=== PATIENT | female | born 1950 | race Caucasian/White ===

== ENCOUNTER 2016-05-02 14:47 | Outpatient (CLI) | payer OTHER | END 2016-05-02 14:48 | disposition home or self-care (01) | DX: Z12.31 Encounter for screening mammogram for malignant neoplasm of breast (principal) ==

== ENCOUNTER 2016-06-17 07:15 | Outpatient (CLI) | payer OTHER | END 2016-06-17 07:16 | disposition critical access hospital (66) | DX: M79.605 Pain in left leg (principal); W01.0XXA Fall on same level from slipping, tripping and stumbling without subsequent striking against object, initial encounter; Y93.G1 Activity, food preparation and clean up; Y92.000 Kitchen of unspecified non-institutional (private) residence as the place of occurrence of the external cause | CPT/HCPCS: A0425; A0427 ==

== ENCOUNTER 2016-06-17 07:55 | Inpatient (IN) | payer OTHER, MEDICARE ==
[2016-06-17] MEDS ORDERED: HYDROmorphone 1 MG/ML SYRINGE IVP STA ×2 (08:02→09:38)
[2016-06-17] MEDS ORDERED: ONDANSETRON 4 MG/2 ML VIAL IVP STA ×2 (08:02→10:13)
[2016-06-17] MEDS ORDERED: HYDROmorphone 1 MG/ML SYRINGE ONE ×2 (08:17→09:40)
[2016-06-17] MEDS ORDERED: ONDANSETRON 4 MG/2 ML VIAL ONE ×2 (08:18→10:14)
[2016-06-17] MEDS ORDERED: diazePAM INJ 5 MG/ML SYRINGE IVP STA (09:38)
[2016-06-17] MEDS ORDERED: diazePAM INJ 5 MG/ML SYRINGE ONE (09:40)
[2016-06-17] MEDS ORDERED: SODIUM CHLORIDE FLUSH 0.9% 10 ML SYRINGE IVP PRN (09:58)
[2016-06-17] MEDS ORDERED: SODIUM CHLORIDE 0.9% 1,000 ML IV SCH (10:00)
[2016-06-17] MEDS ORDERED: SODIUM CHLORIDE 0.9% 1,000 ML IV ONE (10:13)
[2016-06-17] MEDS: HYDROcod/ACETAM 5/325 MG TABLET PO PRN ×3 (12:42→23:51)
[2016-06-17] MEDS: HYDROmorphone 1 MG/ML SYRINGE IVP PRN (13:35)
[2016-06-17] MEDS: FAMOTIDINE 20 MG/50 ML 50 ML IV SCH (13:35)
[2016-06-17] MEDS: SODIUM CHLORIDE FLUSH 0.9% 10 ML SYRINGE IVP SCH (14:02)
[2016-06-17] MEDS: ATENOLOL 25 MG TABLET PO SCH (15:04)
[2016-06-17] MEDS: LISINOPRIL 20 MG TABLET PO SCH (15:04)
[2016-06-17] MEDS: hydroCHLOROthiazide 12.5 MG CAPSULE PO SCH (15:04)
[2016-06-17] MEDS: ACETAMINOPHEN 325 MG TABLET PO PRN (15:54)
[2016-06-17] MEDS: ONDANSETRON 4 MG/2 ML VIAL IVP PRN (15:54)
[2016-06-17] MEDS: SODIUM CHLORIDE 0.9% 1,000 ML IV SCH (17:22)
[2016-06-18] MEDS: SODIUM CHLORIDE FLUSH 0.9% 10 ML SYRINGE IVP SCH ×4 (00:06→19:24)
[2016-06-18] MEDS: SODIUM CHLORIDE 0.9% 1,000 ML IV SCH ×4 (00:07→21:13)
[2016-06-18] MEDS: ACETAMINOPHEN 325 MG TABLET PO PRN (04:26)
[2016-06-18] MEDS: HYDROmorphone 1 MG/ML SYRINGE IVP PRN (05:38)
[2016-06-18] MEDS: ONDANSETRON 4 MG/2 ML VIAL IVP PRN (05:48)
[2016-06-18] MEDS: FAMOTIDINE 20 MG/50 ML 50 ML IV SCH (09:18)
[2016-06-18] MEDS: ATENOLOL 25 MG TABLET PO SCH (09:19)
[2016-06-18] MEDS: hydroCHLOROthiazide 12.5 MG CAPSULE PO SCH (09:19)
[2016-06-18] MEDS: LISINOPRIL 20 MG TABLET PO SCH (09:19)
[2016-06-18] MEDS: POLYETHYLENE GLYCOL 3350 17 GM PACKET PO SCH (09:19)
[2016-06-18] MEDS: HYDROcod/ACETAM 5/325 MG TABLET PO PRN ×4 (09:34→22:47)
[2016-06-18] MEDS: fentaNYL 100 MCG/2 ML VIAL IVP PRN ×3 (12:35→20:28)
[2016-06-19] MEDS: SODIUM CHLORIDE 0.9% 1,000 ML IV SCH ×4 (03:36→20:41)
[2016-06-19] MEDS: HYDROcod/ACETAM 5/325 MG TABLET PO PRN ×2 (03:47→09:10)
[2016-06-19] MEDS: SODIUM CHLORIDE FLUSH 0.9% 10 ML SYRINGE IVP SCH ×3 (07:06→23:25)
[2016-06-19] MEDS: fentaNYL 100 MCG/2 ML VIAL IVP PRN ×2 (07:23→09:10)
[2016-06-19] MEDS: FAMOTIDINE 20 MG/50 ML 50 ML IV SCH (09:11)
[2016-06-19] MEDS: POLYETHYLENE GLYCOL 3350 17 GM PACKET PO SCH (09:14)
[2016-06-19] MEDS: LISINOPRIL 20 MG TABLET PO SCH (09:15)
[2016-06-19] MEDS: hydroCHLOROthiazide 12.5 MG CAPSULE PO SCH (09:15)
[2016-06-19] MEDS: ATENOLOL 25 MG TABLET PO SCH (09:16)
[2016-06-19] MEDS ORDERED: BUPIVACAINE 0.25%-EPI 1:200000 PF 30 ML VIAL SUBQ ONE (13:42)
[2016-06-19] MEDS ORDERED: LACTATED RINGERS 1,000 ML IV ONE ×3 (13:43)
[2016-06-19] MEDS ORDERED: TRANEXAMIC ACID 1,000 MG/10 ML VIAL IV ONE (13:45)
[2016-06-19] MEDS ORDERED: ONDANSETRON 4 MG/2 ML VIAL IVP ONE (13:45)
[2016-06-19] MEDS ORDERED: SODIUM CHLORIDE 0.9% 10 ML VIAL IV ONE (13:45)
[2016-06-19] MEDS ORDERED: ROCURONIUM 50 MG/5 ML VIAL IVP ONE (13:45)
[2016-06-19] MEDS ORDERED: ACETAMINOPHEN 1,000 MG/100 ML VIAL IV ONE (13:45)
[2016-06-19] MEDS ORDERED: LIDOCAINE-MPF 2% 5 ML VIAL IM ONE (13:45)
[2016-06-19] MEDS ORDERED: ROPIVACAINE 0.5% PF 20 ML AMPULE EP ONE (13:45)
[2016-06-19] MEDS ORDERED: PROPOFOL 200 MG/20 ML VIAL IVP ONE (13:45)
[2016-06-19] MEDS ORDERED: MIDAZOLAM 2 MG/2 ML VIAL IVP ONE (13:45)
[2016-06-19] MEDS ORDERED: ePHEDrine 50 MG/ML AMP IVP ONE (13:45)
[2016-06-19] MEDS ORDERED: ceFAZolin 1 GM VIAL IV ONE (13:45)
[2016-06-19] MEDS ORDERED: KETOROLAC 30 MG/ML VIAL IVP ONE (13:45)
[2016-06-19] MEDS ORDERED: fentaNYL 250 MCG/5 ML VIAL IVP ONE (13:45)
[2016-06-19] MEDS ORDERED: DEXAMETHASONE 4 MG/ML VIAL IVP ONE (13:45)
[2016-06-19] MEDS ORDERED: SUCCINYLCHOLINE 200 MG/10 ML VIAL IVP ONE (13:45)
[2016-06-19] MEDS ORDERED: ACETAMINOPHEN 1,000 MG/100 ML 100 ML IV PRN (16:40)
[2016-06-19] MEDS ORDERED: ACETAMINOPHEN 325 MG TABLET PO PRN (16:40)
[2016-06-19] MEDS ORDERED: BISACODYL 5 MG TABLET PO PRN (16:40)
[2016-06-19] MEDS ORDERED: ONDANSETRON 4 MG/2 ML VIAL IVP PRN (16:40)
[2016-06-19] MEDS ORDERED: BISACODYL 10 MG SUPP PR PRN (16:40)
[2016-06-19] MEDS ORDERED: PROCHLORPERAZINE 10 MG/2 ML VIAL IVP PRN (16:40)
[2016-06-19] MEDS ORDERED: HYDROmorphone 1 MG/ML SYRINGE IVP PRN (16:40)
[2016-06-19] MEDS ORDERED: SODIUM CHLORIDE FLUSH 0.9% 10 ML SYRINGE IVP PRN (16:40)
[2016-06-19] MEDS ORDERED: DOCUSATE SODIUM 100 MG CAPSULE PO PRN (16:40)
[2016-06-19] MEDS ORDERED: oxyCOD/ACETAMIN 5 MG/325 MG TABLET PO PRN (16:40)
[2016-06-19] MEDS ORDERED: LACTATED RINGERS 1,000 ML IV SCH (17:00)
[2016-06-19] MEDS: MIDAZOLAM 2 MG/2 ML VIAL ONE ×2 (17:06→17:22)
[2016-06-19] MEDS: ACETAMINOPHEN 1,000 MG/100 ML 100 ML IV SCH ×2 (17:45→22:12)
[2016-06-19] MEDS ORDERED: MIDAZOLAM 2 MG/2 ML VIAL ONE (17:49)
[2016-06-19] MEDS ORDERED: VANCOMYCIN INJ 2 GM in SODIUM CHLORIDE 0.9% 500 ML IV ONE ×4 (19:00)
[2016-06-19] MEDS ORDERED: VANCOMYCIN PER PHARMACY 1 GM in SODIUM CHLORIDE 0.9% 250 ML IV SCH (19:00)
[2016-06-19] MEDS ORDERED: IOPAMIDOL-300 100 ML VIAL IVP ONE (20:17)
[2016-06-19] MEDS: METOPROLOL 5 MG/5 ML VIAL IVP SCH (20:43)
[2016-06-19] MEDS ORDERED: CEFEPIME 2 GM in SODIUM CHLORIDE 0.9% MINIBAG 100 ML IV SCH (21:00)
[2016-06-19] MEDS ORDERED: HEPARIN 5,000 UNIT/ML VIAL IVP SCH (22:05)
[2016-06-19] MEDS: ceFAZolin 2 GM/50 ML 50 ML IV SCH (22:43)
[2016-06-19] MEDS ORDERED: HEPARIN 25,000 UNITS/500 ML 500 ML IV SCH (23:00)
[2016-06-20] MEDS: METOPROLOL 5 MG/5 ML VIAL IVP SCH ×2 (00:08→06:18)
[2016-06-20] MEDS ORDERED: VANCOMYCIN INJ 1 GM in SODIUM CHLORIDE 0.9% 250 ML IV SCH (03:00)
[2016-06-20] MEDS: ACETAMINOPHEN 1,000 MG/100 ML 100 ML IV SCH ×4 (04:00→21:02)
[2016-06-20] MEDS: ceFAZolin 2 GM/50 ML 50 ML IV SCH ×2 (04:00→10:04)
[2016-06-20] MEDS: SODIUM CHLORIDE FLUSH 0.9% 10 ML SYRINGE IVP SCH ×3 (06:29→21:02)
[2016-06-20] MEDS: SODIUM CHLORIDE 0.9% 1,000 ML IV SCH ×3 (06:58→22:58)
[2016-06-20] MEDS: fentaNYL 100 MCG/2 ML VIAL IVP PRN ×2 (08:41→21:03)
[2016-06-20] MEDS: POLYETHYLENE GLYCOL 3350 17 GM PACKET PO SCH (08:59)
[2016-06-20] MEDS: FAMOTIDINE 20 MG/50 ML 50 ML IV SCH (08:59)
[2016-06-20] MEDS ORDERED: RIVAROXABAN 15 MG TABLET PO SCH (09:00)
[2016-06-20] MEDS ORDERED: ENOXAPARIN 40 MG/0.4 ML SYRINGE SUBQ SCH (09:00)
[2016-06-20] MEDS: ATENOLOL 25 MG TABLET PO SCH (09:40)
[2016-06-20] MEDS: LISINOPRIL 20 MG TABLET PO SCH (09:44)
[2016-06-20] MEDS: RIVAROXABAN 15 MG TABLET PO SCH ×2 (11:00→21:02)
[2016-06-20] MEDS: oxyCODONE 5 MG TABLET PO PRN (12:57)
[2016-06-20] MEDS ORDERED: MAGNESIUM SULFATE 2 GRAM 50 ML IV ONE (13:21)
[2016-06-20] MEDS: METOPROLOL TARTRATE 25 MG TABLET PO SCH ×2 (14:13→21:02)
[2016-06-21] MEDS: oxyCODONE 5 MG TABLET PO PRN ×2 (00:03→08:38)
[2016-06-21] MEDS: ACETAMINOPHEN 1,000 MG/100 ML 100 ML IV SCH ×4 (03:46→21:13)
[2016-06-21] MEDS: fentaNYL 100 MCG/2 ML VIAL IVP PRN (04:51)
[2016-06-21] MEDS: SODIUM CHLORIDE FLUSH 0.9% 10 ML SYRINGE IVP SCH ×3 (04:53→21:13)
[2016-06-21] MEDS: METOPROLOL TARTRATE 25 MG TABLET PO SCH ×2 (08:39→21:13)
[2016-06-21] MEDS: RIVAROXABAN 15 MG TABLET PO SCH ×2 (08:40→21:13)
[2016-06-21] MEDS: FAMOTIDINE 20 MG/50 ML 50 ML IV SCH (08:40)
[2016-06-21] MEDS: hydroCHLOROthiazide 25 MG TABLET PO SCH (08:40)
[2016-06-21] MEDS: SODIUM CHLORIDE 0.9% 1,000 ML IV SCH ×2 (09:03→19:34)
[2016-06-21] MEDS: POLYETHYLENE GLYCOL 3350 17 GM PACKET PO SCH (09:04)
[2016-06-21] MEDS: HYDROmorphone 1 MG/ML SYRINGE IVP PRN ×2 (10:29→14:01)
[2016-06-21] MEDS ORDERED: MIN OIL/DIMETHICON/COCONUT OIL 92 GM TUBE TOP ONE (16:57)
[2016-06-22] MEDS: ACETAMINOPHEN 1,000 MG/100 ML 100 ML IV SCH ×4 (04:13→21:31)
[2016-06-22] MEDS: SODIUM CHLORIDE FLUSH 0.9% 10 ML SYRINGE IVP SCH ×3 (05:49→21:31)
[2016-06-22] MEDS: oxyCODONE 5 MG TABLET PO PRN (05:49)
[2016-06-22] MEDS: SODIUM CHLORIDE 0.9% 1,000 ML IV SCH ×2 (05:50→17:05)
[2016-06-22] MEDS: METOPROLOL TARTRATE 25 MG TABLET PO SCH ×2 (09:16→21:30)
[2016-06-22] MEDS: RIVAROXABAN 15 MG TABLET PO SCH ×2 (09:16→21:30)
[2016-06-22] MEDS: POLYETHYLENE GLYCOL 3350 17 GM PACKET PO SCH (09:17)
[2016-06-22] MEDS: hydroCHLOROthiazide 25 MG TABLET PO SCH (09:17)
[2016-06-22] MEDS: FAMOTIDINE 20 MG/50 ML 50 ML IV SCH (09:17)
[2016-06-22] MEDS ORDERED: POTASSIUM CHLORIDE 20 MEQ TABLET PO ONE ×2 (10:48→12:20)
[2016-06-22] MEDS: NEUTRA-PHOS 250 MG TABLET PO SCH ×2 (13:48→16:06)
[2016-06-22] MEDS ORDERED: NEUTRA-PHOS 250 MG TABLET ONE (16:04)
[2016-06-23] MEDS: SODIUM CHLORIDE 0.9% 1,000 ML IV SCH ×2 (02:32→13:48)
[2016-06-23] MEDS: ACETAMINOPHEN 1,000 MG/100 ML 100 ML IV SCH ×4 (04:13→21:29)
[2016-06-23] MEDS: SODIUM CHLORIDE FLUSH 0.9% 10 ML SYRINGE IVP SCH ×2 (05:05→13:49)
[2016-06-23] MEDS: POLYETHYLENE GLYCOL 3350 17 GM PACKET PO SCH (08:14)
[2016-06-23] MEDS: hydroCHLOROthiazide 25 MG TABLET PO SCH (09:23)
[2016-06-23] MEDS: FAMOTIDINE 20 MG/50 ML 50 ML IV SCH (09:23)
[2016-06-23] MEDS: METOPROLOL TARTRATE 25 MG TABLET PO SCH ×2 (09:24→21:28)
[2016-06-23] MEDS: RIVAROXABAN 15 MG TABLET PO SCH ×2 (09:25→21:29)
[2016-06-24] MEDS: SODIUM CHLORIDE 0.9% 1,000 ML IV SCH ×2 (00:04→18:39)
[2016-06-24] MEDS: ACETAMINOPHEN 1,000 MG/100 ML 100 ML IV SCH ×4 (04:03→21:44)
[2016-06-24] MEDS: SODIUM CHLORIDE FLUSH 0.9% 10 ML SYRINGE IVP SCH ×4 (04:35→21:49)
[2016-06-24] MEDS: POLYETHYLENE GLYCOL 3350 17 GM PACKET PO SCH (08:15)
[2016-06-24] MEDS: hydroCHLOROthiazide 25 MG TABLET PO SCH (09:30)
[2016-06-24] MEDS: FAMOTIDINE 20 MG/50 ML 50 ML IV SCH (09:30)
[2016-06-24] MEDS: METOPROLOL TARTRATE 25 MG TABLET PO SCH ×2 (09:31→21:46)
[2016-06-24] MEDS: RIVAROXABAN 15 MG TABLET PO SCH ×2 (09:31→21:46)
[2016-06-24] MEDS: oxyCODONE 5 MG TABLET PO PRN ×2 (10:25→14:24)
[2016-06-25] MEDS: SODIUM CHLORIDE 0.9% 1,000 ML IV SCH (00:19)
[2016-06-25] MEDS: ACETAMINOPHEN 1,000 MG/100 ML 100 ML IV SCH ×2 (03:48→10:52)
[2016-06-25] MEDS: SODIUM CHLORIDE FLUSH 0.9% 10 ML SYRINGE IVP SCH ×2 (06:47→14:36)
[2016-06-25] MEDS: METOPROLOL TARTRATE 25 MG TABLET PO SCH (08:34)
[2016-06-25] MEDS: FAMOTIDINE 20 MG/50 ML 50 ML IV SCH (08:34)
[2016-06-25] MEDS: RIVAROXABAN 15 MG TABLET PO SCH (08:35)
[2016-06-25] MEDS: hydroCHLOROthiazide 25 MG TABLET PO SCH (08:35)
[2016-06-25] MEDS: POLYETHYLENE GLYCOL 3350 17 GM PACKET PO SCH (08:38)
[2016-06-25] MEDS ORDERED: SILVER SULFADIAZINE CREAM 400 GM JAR TOP SCH (14:00)
[2016-06-25] MEDS ORDERED: SILVER SULFADIAZINE CREAM 25 GM TUBE TOP SCH (14:34)
[2016-06-25] MEDS ORDERED: FLU VACCINE QS 2016-17 60 MCG/0.5 ML SYRINGE IM ONE (16:30)
== END 2016-06-25 16:20 | DRG 480 ==
PROC: 2W3MX1Z Immobilization of Left Lower Extremity using Splint (ICD-10-PCS; 2016-06-17)
PROC: 0QSC04Z Reposition Left Lower Femur with Internal Fixation Device, Open Approach (ICD-10-PCS; principal; 2016-06-19 12:30)
DX: S72.492A Other fracture of lower end of left femur, initial encounter for closed fracture (principal); I26.99 Other pulmonary embolism without acute cor pulmonale; J96.01 Acute respiratory failure with hypoxia; I10 Essential (primary) hypertension; I95.9 Hypotension, unspecified; M41.9 Scoliosis, unspecified; W01.0XXA Fall on same level from slipping, tripping and stumbling without subsequent striking against object, initial encounter; Z82.49 Family history of ischemic heart disease and other diseases of the circulatory system; Z80.0 Family history of malignant neoplasm of digestive organs; Z82.5 Family history of asthma and other chronic lower respiratory diseases; Z80.41 Family history of malignant neoplasm of ovary; Z80.6 Family history of leukemia; Z83.71 Family history of colonic polyps; Z88.0 Allergy status to penicillin; Z79.82 Long term (current) use of aspirin; E66.9 Obesity, unspecified; M17.0 Bilateral primary osteoarthritis of knee; Y92.000 Kitchen of unspecified non-institutional (private) residence as the place of occurrence of the external cause; Z68.35 Body mass index [BMI] 35.0-35.9, adult

== ENCOUNTER 2016-07-08 14:33 | Outpatient (CLI) | payer OTHER ==
--- NOTE | 2016-07-09 09:56 | XRAY Report ---
TWO-VIEW LEFT FEMUR: 07/08/2016 CLINICAL HISTORY: Followup fracture. COMPARISON: 06/21/2016 FINDINGS: Post ORIF changes again noted; metallic sideplate with multiple screws traversing the distal femoral fracture with intercondylar extension. The alignment/displacement is stable. There is minimal callus formation. Degenerative changes again noted about the knee. IMPRESSION: POST ORIF CHANGES INVOLVING THE DISTAL FEMORAL FRACTURE WITH INTERCONDYLAR EXTENSION. THE DEGREE OF FRAGMENT DISPLACEMENT IS UNCHANGED. JOB #: [id number] EXT JOB #: [id number] [facility]diaz[facility]
== END 2016-07-08 14:34 | disposition home or self-care (01) ==
LOC: DI 14:33
PROVIDERS: ATTEND Orthopaedic Surgery
DX: S72.462D Displaced supracondylar fracture with intracondylar extension of lower end of left femur, subsequent encounter for closed fracture with routine healing (principal)

== ENCOUNTER 2017-07-03 07:27 | Outpatient (CLI) | payer OTHER ==
[2017-07-03 11:08] LABS: BASOPHILS # (AUTO) 0.1 10^3/uL (0.0-0.1); BASOPHILS % (AUTO) 0.8 %; EOSINOPHILS % (AUTO) 0.7 %; HGB - HEMOGLOBIN 15.9 g/dL (12.0-16.0); LYMPHOCYTES # (AUTO) 1.9 10^3/uL (1.5-3.5); LYMPHOCYTES % (AUTO) 27.2 %; MEAN CORPUSCULAR HGB CONC 34.3 g/dL (32.0-36.0); MEAN CORPUSCULAR VOLUME 87.6 fL (81.0-99.0); MEAN PLATELET VOLUME 9.8 fL (7.9-10.8); MONOCYTES # (AUTO) 0.4 10^3/uL (0.0-1.0); MONOCYTES % (AUTO) 5.8 %; NEUTROPHILS # (AUTO) 4.6 10^3/uL (1.5-6.6); NEUTROPHILS % (AUTO) 65.5 %; PLT - PLATELET COUNT 218 10^3/uL (130-450); RED CELL DISTRIBUTION WIDTH 13.8 % (12.0-15.0)
[2017-07-03 11:25] LABS: ALBUMIN 4.3 g/dL (3.2-5.5); ALBUMIN/GLOBULIN RATIO 1.5 (1.0-2.2); BILIRUBIN,TOTAL 1.2 mg/dL (0.2-1.0); CALCIUM 9.3 mg/dL (8.5-10.3); CREATININE 0.4 mg/dL (0.4-1.0); TOTAL PROTEIN 7.1 g/dL (6.7-8.2)
[2017-07-03 12:06] LABS: HB2 TOTAL 17.3 g/dL; HEMOGLOBIN A1C 0.73 g/dL
== END 2017-07-03 07:28 | disposition home or self-care (01) ==
LOC: LAB.F 07:27
PROVIDERS: ATTEND Physician Assistant Medical
DX: R73.01 Impaired fasting glucose (principal); R03.0 Elevated blood-pressure reading, without diagnosis of hypertension
CPT/HCPCS: 36415; 80053; 83036; 85025

== ENCOUNTER 2017-07-16 09:59 | Outpatient (CLI) | payer OTHER ==
--- NOTE | 2017-07-17 15:49 | Mammography Report ---
DIGITAL SCREENING MAMMOGRAM: 07/16/2017 CLINICAL INDICATION: A 67-year-old nulliparous patient, for screening. COMPARISON: 04/2016, 02/2013, 10/2010, 07/2009. TECHNIQUE: Routine CC and MLO projections were obtained of the breasts. FINDINGS: Scattered fibroglandular tissue is present within the breasts. There are no dominant masses, suspicious microcalcifications, or secondary signs of malignancy. In comparison to the previous studies, there are no significant changes. ASSESSMENT: NO MAMMOGRAPHIC EVIDENCE OF MALIGNANCY. NO SIGNIFICANT INTERVAL CHANGES. RECOMMENDATION: Screening mammography is recommended annually. BIRADS category 1 - negative. STANDARD QUALIFYING STATEMENTS: 1. This examination was reviewed with the aid of Computed-Aided Detection (CAD). 2. A negative or benign imaging report should not delay biopsy if clinically suspicious findings are present. Consider surgical consultation if warranted. More than 5% of cancers are not identified by imaging. 3. Dense breasts may obscure an underlying neoplasm. TD: 07/17/2017 15:48
== END 2017-07-16 10:00 | disposition home or self-care (01) ==
LOC: DI.S 09:59
PROVIDERS: ATTEND Physician Assistant Medical
DX: Z12.31 Encounter for screening mammogram for malignant neoplasm of breast (principal)
CPT/HCPCS: 77067

== ENCOUNTER 2018-04-02 11:11 | Outpatient (CLI) | payer OTHER ==
[2018-04-02 17:53] LABS: BASOPHILS # (AUTO) 0.1 10^3/uL (0.0-0.1); BASOPHILS % (AUTO) 0.6 %; EOSINOPHILS # (AUTO) 0.1 10^3/uL (0.0-0.7); EOSINOPHILS % (AUTO) 0.7 %; HGB - HEMOGLOBIN 15.3 g/dL (12.0-16.0); LYMPHOCYTES # (AUTO) 1.9 10^3/uL (1.5-3.5); LYMPHOCYTES % (AUTO) 23.1 %; MEAN CORPUSCULAR HEMOGLOBIN 29.9 pg (27.0-31.0); MEAN CORPUSCULAR VOLUME 90.6 fL (81.0-99.0); MEAN PLATELET VOLUME 9.5 fL (7.9-10.8); MONOCYTES # (AUTO) 0.5 10^3/uL (0.0-1.0); MONOCYTES % (AUTO) 5.9 %; NEUTROPHILS # (AUTO) 5.8 10^3/uL (1.5-6.6); NEUTROPHILS % (AUTO) 69.7 %; PLT - PLATELET COUNT 262 10^3/uL (130-450); RED BLOOD COUNT 5.12 10^6/uL (4.20-5.40); RED CELL DISTRIBUTION WIDTH 13.7 % (12.0-15.0); WHITE BLOOD COUNT 8.4 x10^3/uL (4.8-10.8)
[2018-04-02 17:58] LABS: ALBUMIN 4.2 g/dL (3.2-5.5); ALBUMIN/GLOBULIN RATIO 1.4 (1.0-2.2); BILIRUBIN,TOTAL 1.3 mg/dL (0.2-1.0); CALCIUM 9.2 mg/dL (8.5-10.3); CREATININE 0.5 mg/dL (0.4-1.0); TOTAL PROTEIN 7.3 g/dL (6.7-8.2)
== END 2018-04-02 11:12 | disposition home or self-care (01) ==
LOC: LAB.F 11:11
PROVIDERS: ATTEND Internal Medicine Gastroenterology
DX: Z86.718 Personal history of other venous thrombosis and embolism (principal)
CPT/HCPCS: 36415; 80053; 85025

== ENCOUNTER 2018-04-07 14:31 | Outpatient (CLI) | payer OTHER | END 2018-04-07 14:32 | disposition home or self-care (01) | LOC: RT 14:31 | PROVIDERS: ATTEND Internal Medicine Gastroenterology | DX: Z86.718 Personal history of other venous thrombosis and embolism (principal); I49.9 Cardiac arrhythmia, unspecified; I10 Essential (primary) hypertension | CPT/HCPCS: 93005 ==

== ENCOUNTER 2018-04-29 08:46 | Day surgery (SDC) | payer OTHER ==
[2018-04-29] MEDS ORDERED: LACTATED RINGERS 1,000 ML IV ONE (09:16)
[2018-04-29] MEDS ORDERED: fentaNYL 250 MCG/5 ML VIAL IVP ONE (10:15)
[2018-04-29] MEDS ORDERED: MIDAZOLAM 2 MG/2 ML VIAL IVP ONE (10:15)
[2018-04-29 11:34] VITALS: BP 113/46
== END 2018-04-29 08:47 | disposition home or self-care (01) ==
LOC: SDS 08:46
PROVIDERS: ATTEND Internal Medicine Gastroenterology
PROC: 0DBM8ZZ Excision of Descending Colon, Via Natural or Artificial Opening Endoscopic (ICD-10-PCS; 2018-04-29)
PROC: 0DBF8ZZ Excision of Right Large Intestine, Via Natural or Artificial Opening Endoscopic (ICD-10-PCS; 2018-04-29)
PROC: 3E0H8GC Introduction of Other Therapeutic Substance into Lower GI, Via Natural or Artificial Opening Endoscopic (ICD-10-PCS; 2018-04-29)
PROC: 0DBH8ZZ Excision of Cecum, Via Natural or Artificial Opening Endoscopic (ICD-10-PCS; principal; 2018-04-29 10:00)
DX: Z12.11 Encounter for screening for malignant neoplasm of colon (principal); D12.0 Benign neoplasm of cecum; D12.3 Benign neoplasm of transverse colon; K63.89 Other specified diseases of intestine; K57.30 Diverticulosis of large intestine without perforation or abscess without bleeding; I10 Essential (primary) hypertension; I49.9 Cardiac arrhythmia, unspecified; K90.41 Non-celiac gluten sensitivity; R35.0 Frequency of micturition; E66.01 Morbid (severe) obesity due to excess calories; R42 Dizziness and giddiness; Z79.01 Long term (current) use of anticoagulants; Z86.718 Personal history of other venous thrombosis and embolism; Z86.711 Personal history of pulmonary embolism
CPT/HCPCS: 45380; 45381; 45385; J3010; J7120

== ENCOUNTER 2018-10-05 15:13 | Outpatient (CLI) | payer OTHER ==
--- NOTE | 2018-10-05 20:29 | Ultrasound Report ---
Reason: PAIN IN RIGHT LOWER LEG,LOCALIZED SWELLING ON RIGH Procedure Date: 10/05/2018 Accession Number: [id number] / [id number] Procedure: US - Duplex Ext Veins Bilateral CPT Code: FULL RESULT: EXAM: BILATERAL LOWER EXTREMITY VENOUS ULTRASOUND EXAM DATE: 10/05/2018 04:20 PM. CLINICAL HISTORY: PAIN IN RIGHT LOWER LEG,LOCALIZED SWELLING ON RIGH. COMPARISON: None. TECHNIQUE: Real-time sonographic vascular imaging was performed by the product assurance engineer through the lower extremities utilizing both color-flow and Doppler spectral analysis. Multiple cash application representative static images were saved for review. FINDINGS: Right: Common Femoral Vein (CFV): Normal. CFV-GSV Junction: Normal. Profunda Femoral Vein (PFV): Normal. Femoral Vein (FV) Prox: Normal. Femoral Vein (FV) Mid: Normal. Femoral Vein (FV) Dist: Normal. Popliteal Vein: Normal. Posterior Tibial Veins: Normal. Peroneal Veins: Normal. Left: Common Femoral Vein (CFV): Normal. CFV-GSV Junction: Normal. Profunda Femoral Vein (PFV): Normal. Femoral Vein (FV) Prox: Normal. Femoral Vein (FV) Mid: Normal. Femoral Vein (FV) Dist: Normal. Popliteal Vein: Normal. Posterior Tibial Veins: Normal. Peroneal Veins: Normal. Other: Study limited by body habitus and soft tissue edema. IMPRESSION: No evidence for deep venous thrombosis bilaterally. RADIA
== END 2018-10-05 15:14 | disposition home or self-care (01) ==
LOC: DI 15:13
PROVIDERS: ATTEND Physician Assistant Medical
DX: M79.661 Pain in right lower leg (principal); R22.41 Localized swelling, mass and lump, right lower limb
CPT/HCPCS: 93970

== ENCOUNTER 2019-05-23 07:56 | Outpatient (CLI) | payer OTHER ==
[2019-05-23 10:11] LABS: BASOPHILS # (AUTO) 0.1 10^3/uL (0.0-0.1); BASOPHILS % (AUTO) 1.2 %; EOSINOPHILS # (AUTO) 0.1 10^3/uL (0.0-0.7); EOSINOPHILS % (AUTO) 1.3 %; HGB - HEMOGLOBIN 16.6 g/dL (12.0-16.0); LYMPHOCYTES # (AUTO) 2.3 10^3/uL (1.5-3.5); LYMPHOCYTES % (AUTO) 32.9 %; MEAN CORPUSCULAR HEMOGLOBIN 30.2 pg (27.0-31.0); MEAN CORPUSCULAR HGB CONC 33.1 g/dL (32.0-36.0); MEAN CORPUSCULAR VOLUME 91.3 fL (81.0-99.0); MEAN PLATELET VOLUME 11.7 fL (7.9-10.8); MONOCYTES # (AUTO) 0.5 10^3/uL (0.0-1.0); MONOCYTES % (AUTO) 7.2 %; PLT - PLATELET COUNT 241 10^3/uL (130-450); RED BLOOD COUNT 5.49 10^6/uL (4.20-5.40); RED CELL DISTRIBUTION WIDTH 12.6 % (12.0-15.0); WHITE BLOOD COUNT 6.9 x10^3/uL (4.8-10.8)
[2019-05-23 10:27] LABS: ALBUMIN 4.3 g/dL (3.2-5.5); ALBUMIN/GLOBULIN RATIO 1.5 (1.0-2.2); BILIRUBIN,TOTAL 1.3 mg/dL (0.2-1.0); CALCIUM 9.3 mg/dL (8.5-10.3); CREATININE 0.5 mg/dL (0.4-1.0); TOTAL PROTEIN 7.2 g/dL (6.7-8.2)
== END 2019-05-23 07:57 | disposition home or self-care (01) ==
LOC: LAB.S 07:56
PROVIDERS: ATTEND Physician Assistant Medical
DX: I10 Essential (primary) hypertension (principal)
CPT/HCPCS: 36415; 80053; 85025

== ENCOUNTER 2019-11-14 10:21 | Outpatient (CLI) | payer OTHER ==
[2019-11-14 15:25] LABS: BASOPHILS # (AUTO) 0.1 10^3/uL (0.0-0.1); BASOPHILS % (AUTO) 0.6 %; EOSINOPHILS # (AUTO) 0.1 10^3/uL (0.0-0.7); EOSINOPHILS % (AUTO) 1.1 %; LYMPHOCYTES # (AUTO) 2.5 10^3/uL (1.5-3.5); LYMPHOCYTES % (AUTO) 31.3 %; MEAN CORPUSCULAR HEMOGLOBIN 29.5 pg (27.0-31.0); MEAN CORPUSCULAR VOLUME 92.3 fL (81.0-99.0); MONOCYTES # (AUTO) 0.5 10^3/uL (0.0-1.0); MONOCYTES % (AUTO) 6.6 %; NEUTROPHILS # (AUTO) 4.8 10^3/uL (1.5-6.6); PLT - PLATELET COUNT 248 10^3/uL (130-450); RED BLOOD COUNT 5.42 10^6/uL (4.20-5.40); RED CELL DISTRIBUTION WIDTH 13.2 % (12.0-15.0)
[2019-11-14 15:50] LABS: HB2 TOTAL 17.3 g/dL; HEMOGLOBIN A1C 0.66 g/dL; HEMOGLOBIN A1C % 5.6 % (4.6-6.2)
== END 2019-11-14 10:22 | disposition home or self-care (01) ==
LOC: LAB.S 10:21
PROVIDERS: ATTEND Physician Assistant Medical
DX: R73.01 Impaired fasting glucose (principal); R79.89 Other specified abnormal findings of blood chemistry
CPT/HCPCS: 36415; 83036; 85025

== ENCOUNTER 2020-11-08 09:12 | Outpatient (CLI) | payer MEDICARE, OTHER ==
--- NOTE | 2020-11-08 16:23 | XRAY Report ---
PROCEDURE: Cervical Spine Complete INDICATIONS: NECK PX, CHRONIC TECHNIQUE: 7 view(s) of the cervical spine were acquired. COMPARISON: None. FINDINGS: Bones: No fractures or dislocations to the T1 level. The lateral masses of C1 appear intact on the odontoid view. No suspicious bony lesions. There are severe multilevel degenerative changes. There is dextroscoliosis of the thoracic spine. Soft tissues: No prevertebral soft tissue swelling. IMPRESSION: Multilevel degenerative changes of the cervical spine with no acute abnormality. Reviewed by: Aidan Sequeira on 11/08/2020 4:21 PM PDT Approved by: Aidan Sequeira on 11/08/2020 4:21 PM PDT Station ID: [id number]
== END 2020-11-08 09:13 | disposition home or self-care (01) ==
LOC: DI.S 09:12
PROVIDERS: ATTEND Physician Assistant
DX: M47.812 Spondylosis without myelopathy or radiculopathy, cervical region (principal)

== ENCOUNTER 2021-07-12 09:28 | Day surgery (SDC) | payer MEDICARE, OTHER ==
[2021-07-12] MEDS ORDERED: LACTATED RINGERS 1,000 ML IV ONE ×2 (09:41→11:08)
[2021-07-12] MEDS ORDERED: PROPOFOL 200 MG/20 ML VIAL IVP ONE ×2 (09:51→10:49)
[2021-07-12] MEDS ORDERED: MIDAZOLAM 2 MG/2 ML VIAL ONE (10:24)
--- NOTE | 2021-07-12 10:32 | ANESTHESIA ---
Pre-Anesthesia VS, & Labs - Diagnosis hx of colon polyps - Procedure Colonoscopy Height: 5 ft 6 in Weight (kg): 98 kg Body Mass Index: 34.8 BMI Classification: Obese - NPO >8 hours - Is Patient ?: No - Lab Results Lab results reviewed: Yes Home Medications and Allergies Calcium Carbonate [Calcium] 1,000 mg PO BID 06/17/16 Multivitamin [Theragran] 1 tab PO DAILY 06/17/16 atenoloL [Atenolol] 25 mg PO DAILY 06/17/16 hydroCHLOROthiazide [Hydrodiuril] 12.5 mg PO DAILY 06/17/16 Cetirizine [ZyrTEC] 10 mg PO DAILY PRN 04/14/18 Cholecalciferol (Vitamin D3) [Vitamin D3] 1,000 unit PO DAILY 04/14/18 Allergies/Adverse Reactions: Allergies Allergy/AdvReac Type Severity Reaction Status Date / Time Penicillins Allergy Mild fever Verified 07/12/21 09:54 perfume Allergy Rash Verified 07/12/21 09:54 adhesive tape AdvReac Mild blisters Verified 07/12/21 09:54 gluten AdvReac stomach Verified 07/12/21 09:54 pain Anes History & Medical History - Anesthetic History Anesthesia Complications: reports: No previous complications Family history of Anesthesia Complications: Denies Family history of Malignant Hyperthermia: Denies - Medical History Cardiovascular: reports: Hypertension, Pulmonary embolism Pulmonary: reports: None Gastrointestinal: reports: None Urinary: reports: None Musculoskeletal: reports: Osteoarthritis, Scoliosis, Chronic back pain, Other Endocrine/Autoimmune: reports: None Blood Disorders: reports: None Skin: reports: None Smoking Status: Never smoker - Surgical History Eyes Ears Nose Throat (EENT): reports: Tonsil/Adenoidectomy Orthopedic: reports: Other Exam General: Alert, Oriented x3, Cooperative, No acute distress Dental: WNL Mouth Openin Fingerbreadth Neck Mobility: Reduced Mallampati classification: II Plan Anesthesia Type: General, Total IV Consent for Procedure(s) Verified and Reviewed: Yes Code Status: Attempt Resuscitation ASA classification: 2-Mild systemic disease Is this case an emergency?: No
[2021-07-12] MEDS ORDERED: GLYCOPYRROLATE 1 MG/5 ML VIAL ONE (10:41)
[2021-07-12] MEDS ORDERED: SODIUM CHLORIDE FLUSH 0.9% 10 ML SYRINGE IVP ONE (10:46)
[2021-07-12] MEDS ORDERED: ePHEDrine 50 MG/ML VIAL IVP ONE (10:46)
[2021-07-12 11:37] VITALS: BP 125/71
--- NOTE | 2021-07-12 11:40 | ANESTHESIA POST OP EVALUATION ---
Anesthesia Post Eval - Post Anesthesia Eval Vitals: Last Vital Signs Temp 36.3 C L 07/12/21 11:36 Pulse 55 L 07/12/21 11:36 Resp 16 07/12/21 11:36 BP 125/71 07/12/21 11:36 Pulse Ox 95 07/12/21 11:36 CV Function Including HR & BP: Stable Pain Control: Satisfactory Nausea & Vomiting: Negative Mental Status: Baseline Respiratory Status: Airway Patent Hydration Status: Satisfactory Anesthesia Complications: None
== END 2021-07-12 09:29 | disposition home or self-care (01) ==
LOC: SDS 09:28
PROVIDERS: ATTEND Surgery
PROC: 0DBL8ZX Excision of Transverse Colon, Via Natural or Artificial Opening Endoscopic, Diagnostic (ICD-10-PCS; 2021-07-12)
PROC: 0DBH8ZZ Excision of Cecum, Via Natural or Artificial Opening Endoscopic (ICD-10-PCS; principal; 2021-07-12 10:30)
DX: Z12.11 Encounter for screening for malignant neoplasm of colon (principal); D12.1 Benign neoplasm of appendix; D12.0 Benign neoplasm of cecum; D12.3 Benign neoplasm of transverse colon; K57.30 Diverticulosis of large intestine without perforation or abscess without bleeding; E66.9 Obesity, unspecified; Z68.34 Body mass index [BMI] 34.0-34.9, adult; M41.9 Scoliosis, unspecified
CPT/HCPCS: 45380; J7120

== ENCOUNTER 2021-07-23 09:01 | Outpatient (CLI) | payer MEDICARE, OTHER ==
--- NOTE | 2021-07-24 09:03 | Mammography Report ---
BILATERAL DIGITAL SCREENING MAMMOGRAM 3D/2D: 07/23/2021 CLINICAL: Routine screening. Comparison is made to exams dated: 07/16/2017 mammogram and 05/02/2016 mammogram - [facility]. The tissue of both breasts is predominantly fatty. No significant masses, calcifications, or other findings are seen in either breast. There has been no significant interval change. IMPRESSION: NEGATIVE There is no mammographic evidence of malignancy. A 1 year screening mammogram is recommended. This exam was interpreted at Station ID: [id number]. NOTE: For mammograms, a report in lay terms will be sent to the patient. Approximately 15% of breast malignancies will not be visualized mammographically. In the management of a palpable breast mass, a negative mammogram must not discourage biopsy of a clinically suspicious lesion. Electronically Signed By: Teresa burden/penrad:07/23/2021 15:24:34 ACR BI-RADS Category 1: Negative 3341F PARENCHYMAL PATTERN: (F) - The breast(s) demonstrate(s) diffuse fatty replacement. BI-RADS CATEGORY: (1) - 1 RECOMMENDATION: (ANNUAL) - Recommend routine annual screening mammography. [id number] 1 year screening LATERALITY: (B)
== END 2021-07-23 09:02 | disposition home or self-care (01) ==
LOC: DI.S 09:01
PROVIDERS: ATTEND Internal Medicine
DX: Z12.31 Encounter for screening mammogram for malignant neoplasm of breast (principal)

== ENCOUNTER 2021-07-25 07:22 | Outpatient (CLI) | payer MEDICARE, OTHER ==
[2021-07-25 14:59] LABS: BASOPHILS # (AUTO) 0.1 10^3/uL (0.0-0.1); BASOPHILS % (AUTO) 0.8 %; EOSINOPHILS # (AUTO) 0.1 10^3/uL (0.0-0.7); EOSINOPHILS % (AUTO) 1.7 %; HCT - HEMATOCRIT 47.1 % (37.0-47.0); HGB - HEMOGLOBIN 15.7 g/dL (12.0-16.0); LYMPHOCYTES # (AUTO) 2.1 10^3/uL (1.5-3.5); LYMPHOCYTES % (AUTO) 34.4 %; MEAN CORPUSCULAR HEMOGLOBIN 30.3 pg (27.0-31.0); MEAN CORPUSCULAR HGB CONC 33.3 g/dL (32.0-36.0); MEAN CORPUSCULAR VOLUME 90.8 fL (81.0-99.0); MEAN PLATELET VOLUME 11.7 fL (7.9-10.8); MONOCYTES # (AUTO) 0.4 10^3/uL (0.0-1.0); MONOCYTES % (AUTO) 6.7 %; NEUTROPHILS # (AUTO) 3.4 10^3/uL (1.5-6.6); NEUTROPHILS % (AUTO) 56.2 %; PLT - PLATELET COUNT 228 10^3/uL (130-450); RED BLOOD COUNT 5.19 10^6/uL (4.20-5.40); RED CELL DISTRIBUTION WIDTH 12.8 % (12.0-15.0)
[2021-07-25 15:39] LABS: ALBUMIN 4.1 g/dL (3.2-5.5); ALBUMIN/GLOBULIN RATIO 1.4 (1.0-2.2); ALKALINE PHOSPHATASE 48 IU/L (42-121); ALT ALANINE AMINOTRANSFERASE 22 IU/L (10-60); AST ASPARTATE AMINOTRANSFERASE 24 IU/L (10-42); BUN - BLOOD UREA NITROGEN 29 mg/dL (6-20); CALCIUM 9.5 mg/dL (8.5-10.3); CARBON DIOXIDE - CO2 28 mmol/L (21-32); CHLORIDE 100 mmol/L (101-111); CHOL/HDL RATIO 3.2 (<4.4); CHOLESTEROL 202 mg/dL; CREATININE 0.6 mg/dL (0.4-1.0); GFR - MDRD 99 (>89); GLUCOSE 110 mg/dL (70-100); HDL CHOLESTEROL 63 mg/dL; LDL CHOLESTEROL,CALCULATED 116 mg/dL; LDL/HDL RATIO 1.8 (<4.4); POTASSIUM 3.8 mmol/L (3.5-5.0); SODIUM 136 mmol/L (135-145); TRIGLYCERIDES 115 mg/dL; VLDL CHOLESTEROL 23 mg/dL
[2021-07-25 21:40] LABS: ESTIMATED AVERAGE GLUCOSE 120 mg/dL (70-100); HEMOGLOBIN A1c% 5.8 % (4.27-6.07)
== END 2021-07-25 07:23 | disposition home or self-care (01) ==
LOC: LAB.S 07:22
PROVIDERS: ATTEND Internal Medicine
DX: I10 Essential (primary) hypertension (principal); Z13.220 Encounter for screening for lipoid disorders; R73.01 Impaired fasting glucose
CPT/HCPCS: 36415; 80053; 80061; 83036; 83721; 85025

== ENCOUNTER 2022-06-26 09:06 | Outpatient (CLI) | payer MEDICARE, OTHER ==
[2022-06-26 14:37] LABS: BASOPHILS # (AUTO) 0.1 10^3/uL (0.0-0.1); BASOPHILS % (AUTO) 1.3 %; EOSINOPHILS # (AUTO) 0.1 10^3/uL (0.0-0.7); EOSINOPHILS % (AUTO) 1.1 %; HGB - HEMOGLOBIN 16.4 g/dL (12.0-16.0); LYMPHOCYTES # (AUTO) 1.8 10^3/uL (1.5-3.5); MEAN CORPUSCULAR HEMOGLOBIN 29.1 pg (27.0-31.0); MEAN CORPUSCULAR HGB CONC 32.2 g/dL (32.0-36.0); MEAN CORPUSCULAR VOLUME 90.6 fL (81.0-99.0); MEAN PLATELET VOLUME 12.2 fL (7.9-10.8); MONOCYTES # (AUTO) 0.4 10^3/uL (0.0-1.0); MONOCYTES % (AUTO) 6.5 %; NEUTROPHILS # (AUTO) 3.2 10^3/uL (1.5-6.6); NEUTROPHILS % (AUTO) 57.9 %; PLT - PLATELET COUNT 242 10^3/uL (130-450); RED BLOOD COUNT 5.63 10^6/uL (4.20-5.40); WHITE BLOOD COUNT 5.6 x10^3/uL (4.8-10.8)
[2022-06-26 14:59] LABS: ALBUMIN 4.1 g/dL (3.2-5.5); ALBUMIN/GLOBULIN RATIO 1.7 (1.0-2.2); ALKALINE PHOSPHATASE 46 IU/L (42-121); ALT ALANINE AMINOTRANSFERASE 21 IU/L (10-60); AST ASPARTATE AMINOTRANSFERASE 22 IU/L (10-42); BUN - BLOOD UREA NITROGEN 27 mg/dL (6-20); CALCIUM 9.7 mg/dL (8.5-10.3); CARBON DIOXIDE - CO2 31 mmol/L (21-32); CHLORIDE 99 mmol/L (101-111); CHOL/HDL RATIO 3.3 (<4.4); CHOLESTEROL 176 mg/dL; CREATININE 0.4 mg/dL (0.4-1.0); GFR - MDRD 157 (>89); GLUCOSE 109 mg/dL (70-100); HDL CHOLESTEROL 54 mg/dL; LDL CHOLESTEROL,CALCULATED 108 mg/dL; POTASSIUM 3.9 mmol/L (3.5-5.0); SODIUM 138 mmol/L (135-145); TOTAL PROTEIN 6.5 g/dL (6.7-8.2); TRIGLYCERIDES 72 mg/dL; VLDL CHOLESTEROL 14 mg/dL
[2022-06-26 15:36] LABS: THYROID STIMULATING HORMONE 1.03 uIU/mL (0.34-5.60)
== END 2022-06-26 09:07 | disposition home or self-care (01) ==
LOC: LAB.S 09:06
PROVIDERS: ATTEND Nurse Practitioner Acute Care
DX: I10 Essential (primary) hypertension (principal); Z13.228 Encounter for screening for other metabolic disorders; Z13.220 Encounter for screening for lipoid disorders; Z13.29 Encounter for screening for other suspected endocrine disorder; Z13.0 Encounter for screening for diseases of the blood and blood-forming organs and certain disorders involving the immune mechanism
CPT/HCPCS: 36415; 80053; 80061; 83721; 84443; 85025

== ENCOUNTER 2022-07-08 08:20 | Outpatient (CLI) | payer MEDICARE, OTHER ==
--- NOTE | 2022-07-08 14:16 | DEXA Report ---
PROCEDURE: Dexa Spine and/or Hip INDICATIONS: POST MENOPAUSAL TECHNIQUE: Dual energy x-ray absorptiometry (DXA) was performed on a [employer] System. Regions measur ed are the AP Spine, femoral neck, and if needed forearm. COMPARISON: None. FINDINGS: Right Femoral Neck: Bone Mineral Density 0.549 g/cm/cm, T score -3.5, Right Hip: Bone Mineral Density 0.616 g/cm/cm,T score -3.1, Left forearm: Bone Mineral Density 0.682 g/cm/cm, T score -2.2, (T score greater or equal to -1.0: NORMAL) (T score from -1.1 to -2.4: OSTEOPENIA) (T score less than or equal to -2.5 to: OSTEOPOROSIS) Impression: Osteoporosis Patients with diagnosis of osteoporosis or osteopenia should have regular bone mineral density assess ment. For those eligible for Medicare, routine testing is allowed once every 2 years. Testing frequ ency can be increased for patients who have rapidly progressing disease or for those who are receivin g medical therapy to restore bone mass. Reviewed by: Guy Agrawal MD on 07/08/2022 2:15 PM PDT Approved by: Guy Agrawal MD on 07/08/2022 2:15 PM PDT Station ID: [id number]
== END 2022-07-08 08:21 | disposition home or self-care (01) ==
LOC: DI 08:20
PROVIDERS: ATTEND Nurse Practitioner Acute Care
DX: M81.0 Age-related osteoporosis without current pathological fracture (principal); Z78.0 Asymptomatic menopausal state

== ENCOUNTER 2022-07-11 10:21 | Outpatient (CLI) | payer MEDICARE, OTHER ==
[2022-07-11 14:41] LABS: BASOPHILS # (AUTO) 0.1 10^3/uL (0.0-0.1); BASOPHILS % (AUTO) 0.7 %; EOSINOPHILS % (AUTO) 0.6 %; HGB - HEMOGLOBIN 16.4 g/dL (12.0-16.0); LYMPHOCYTES % (AUTO) 28.2 %; MEAN CORPUSCULAR HEMOGLOBIN 29.3 pg (27.0-31.0); MEAN CORPUSCULAR HGB CONC 32.8 g/dL (32.0-36.0); MEAN CORPUSCULAR VOLUME 89.4 fL (81.0-99.0); MEAN PLATELET VOLUME 12.2 fL (7.9-10.8); MONOCYTES # (AUTO) 0.5 10^3/uL (0.0-1.0); MONOCYTES % (AUTO) 6.8 %; NEUTROPHILS # (AUTO) 4.6 10^3/uL (1.5-6.6); NEUTROPHILS % (AUTO) 63.4 %; PLT - PLATELET COUNT 247 10^3/uL (130-450); RED BLOOD COUNT 5.59 10^6/uL (4.20-5.40); RED CELL DISTRIBUTION WIDTH 12.9 % (12.0-15.0); WHITE BLOOD COUNT 7.2 x10^3/uL (4.8-10.8)
== END 2022-07-11 10:22 | disposition home or self-care (01) ==
LOC: LAB.S 10:21
PROVIDERS: ATTEND Nurse Practitioner Acute Care
DX: D75.1 Secondary polycythemia (principal)
CPT/HCPCS: 36415; 82668; 85025

== ENCOUNTER 2022-09-30 10:29 | Outpatient (CLI) | payer MEDICARE, OTHER ==
[2022-09-30 14:41] LABS: BASOPHILS # (AUTO) 0.1 10^3/uL (0.0-0.1); BASOPHILS % (AUTO) 0.9 %; EOSINOPHILS # (AUTO) 0.1 10^3/uL (0.0-0.7); EOSINOPHILS % (AUTO) 0.9 %; HCT - HEMATOCRIT 48.2 % (37.0-47.0); HGB - HEMOGLOBIN 15.7 g/dL (12.0-16.0); LYMPHOCYTES # (AUTO) 2.1 10^3/uL (1.5-3.5); LYMPHOCYTES % (AUTO) 31.5 %; MEAN CORPUSCULAR HEMOGLOBIN 29.5 pg (27.0-31.0); MEAN CORPUSCULAR HGB CONC 32.6 g/dL (32.0-36.0); MEAN CORPUSCULAR VOLUME 90.4 fL (81.0-99.0); MEAN PLATELET VOLUME 12.1 fL (7.9-10.8); MONOCYTES # (AUTO) 0.5 10^3/uL (0.0-1.0); MONOCYTES % (AUTO) 6.8 %; NEUTROPHILS # (AUTO) 3.9 10^3/uL (1.5-6.6); NEUTROPHILS % (AUTO) 59.4 %; PLT - PLATELET COUNT 243 10^3/uL (130-450); RED BLOOD COUNT 5.33 10^6/uL (4.20-5.40); RED CELL DISTRIBUTION WIDTH 13.3 % (12.0-15.0); WHITE BLOOD COUNT 6.6 x10^3/uL (4.8-10.8)
[2022-09-30 15:05] LABS: CALCIUM 9.6 mg/dL (8.5-10.3); CREATININE 0.5 mg/dL (0.4-1.0); POTASSIUM 4.2 mmol/L (3.5-5.0)
== END 2022-09-30 10:30 | disposition home or self-care (01) ==
LOC: LAB.S 10:29
PROVIDERS: ATTEND Nurse Practitioner Acute Care
DX: Z01.812 Encounter for preprocedural laboratory examination (principal); D75.1 Secondary polycythemia
CPT/HCPCS: 36415; 80048; 82668; 85025

== ENCOUNTER 2022-10-28 03:54 | Outpatient (CLI) | payer MEDICARE, OTHER | END 2022-10-28 23:59 | disposition critical access hospital (66) | LOC: EMS 03:54 | DX: R58 Hemorrhage, not elsewhere classified (principal); R42 Dizziness and giddiness; R00.0 Tachycardia, unspecified | CPT/HCPCS: A0425; A0429 ==

== ENCOUNTER 2022-10-28 04:30 | Emergency (ER) | payer MEDICARE, OTHER ==
[2022-10-28] MEDS: TRANEXAMIC ACID 1,000 MG/10 ML VIAL NAS STA (04:54)
[2022-10-28] MEDS: LIDOCAINE 2%-EPI 1:100000 20 ML MDV SUBQ STA (04:55)
[2022-10-28 05:46] VITALS: BP 114/71
--- NOTE | 2022-10-28 05:46 | CONSULTATION NOTE ---
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 About a week ago she had the mass removed from the left ventrolateral tongue by name of CHEMA Bowman, from [facility]. Her postoperative course was normal until last night when she began having brief bleeding from her mouth. She was brought to the emergency room by ambulance. She was determined to have delayed arterial bleeding from the left ventrolateral tongue wound. In the emergency room she has maintained her own airway, she has remained hemodynamically stable, she has remained in good spirits throughout the duration of this event.This is her first episode of postoperative bleeding. History - Past Medical History Cardiovascular: reports: Hypertension, Pulmonary embolism Respiratory: reports: None Endocrine/Autoimmune: reports: None GI: reports: None : reports: None HEENT: reports: None Psych: reports: None Musculoskeletal: reports: Osteoarthritis, Scoliosis, Chronic back pain, Other Derm: reports: None MRSA Hx?: No - Past Surgical History Ortho: reports: Other HEENT: reports: Tonsil/Adenoidectomy Meds/Allgy - Home Medications Home Medications: Ambulatory Orders Medication Instructions Recorded Confirmed Calcium Carbonate [Calcium] 1,000 mg PO BID 06/17/16 07/11/21 Multivitamin [Theragran] 1 tab PO DAILY 06/17/16 07/11/21 atenoloL [Atenolol] 25 mg PO DAILY 06/17/16 07/12/21 hydroCHLOROthiazide [Hydrodiuril] 12.5 mg PO DAILY 06/17/16 07/11/21 Cetirizine [ZyrTEC] 10 mg PO DAILY PRN 04/14/18 07/11/21 Cholecalciferol (Vitamin D3) 1,000 unit PO DAILY 04/14/18 07/11/21 [Vitamin D3] - Allergies Allergies/Adverse Reactions: Allergies Allergy/AdvReac Type Severity Reaction Status Date / Time Penicillins Allergy Mild fever Verified 07/12/21 09:54 perfume Allergy Rash Verified 07/12/21 09:54 adhesive tape AdvReac Mild blisters Verified 07/12/21 09:54 gluten AdvReac stomach Verified 07/12/21 09:54 pain Exam - Vital Signs Reviewed Vital Signs: Yes Vital Signs: Vital Signs x48h Temp Pulse Resp BP Pulse Ox 10/28/22 05:43 131 H 16 114/71 95 10/28/22 04:36 36.3 C L 129 H 16 131/84 H 95 - Physical Exam General Appearance: positive: No acute distress, Alert ENT: positive: Other (The left ventrolateral tongue wound is open. A large area of tissue was removed and left denuded. Submucosal muscle is visible within the wound and the wound is pink and healthy and healing within normal limits. In the anterior one third of the wound there is pulsatile bleeding from a small arter) Neck: positive: Other (No other bleeding from any other areas of the mouth. No draining, swelling or evidence of wound infection.) Conclusion and Plan - Diagnosis Diagnosis: Delayed postoperative bleeding, left tongue - Consultation Note Consultation Note: 72-year-old female 1 week status post mass removal from the left ventrolateral tongue with delayed postoperative small arterial bleeding. - Plan Plan: The procedures to stop this bleeding that have already been performed where to inject local anesthesia and to place TXA soaked soaked gauze over the bleeding. In spite of these efforts the bleeding has continued. We will try other local measures to stop the bleeding ankle including a [id number] suture over the top of the bleeding.
--- NOTE | 2022-10-28 05:47 | ED Physician Documentation ---
History of Present Illness - Stated complaint Stated Complaint: TONGUE BLEEDING - Chief complaint Chief Complaint: General - History obtained from History obtained from: Patient, EMS - Additonal information Additional information: The patient is brought to the emergency department by EMS for chief complaint of left side of tongue bleeding. The patient just had a mass removed off that side of her tongue at [facility] about a week ago. She states she got up to rinse her mouth and then realized her tongue was bleeding. Patient has soaked 8 thick wads of gauze and there is no signs of bleeding stopping. She denies any direct trauma to the tongue acutely. No other complaints at this time. PD PAST MEDICAL HISTORY - Past Medical History Cardiovascular: Hypertension, Pulmonary embolism Respiratory: None Endocrine/Autoimmune: None GI: None : None HEENT: None Psych: None Musculoskeletal: Osteoarthritis, Scoliosis, Chronic back pain, Other Derm: None - Past Surgical History Past Surgical History: Yes Ortho: Other HEENT: Tonsil/Adenoidectomy - Present Medications Home Medications: Ambulatory Orders Medication Instructions Recorded Confirmed Calcium Carbonate [Calcium] 1,000 mg PO BID 06/17/16 07/11/21 Multivitamin [Theragran] 1 tab PO DAILY 06/17/16 07/11/21 atenoloL [Atenolol] 25 mg PO DAILY 06/17/16 07/12/21 hydroCHLOROthiazide [Hydrodiuril] 12.5 mg PO DAILY 06/17/16 07/11/21 Cetirizine [ZyrTEC] 10 mg PO DAILY PRN 04/14/18 07/11/21 Cholecalciferol (Vitamin D3) 1,000 unit PO DAILY 04/14/18 07/11/21 [Vitamin D3] - Allergies Allergies/Adverse Reactions: Allergies Allergy/AdvReac Type Severity Reaction Status Date / Time Penicillins Allergy Mild fever Verified 07/12/21 09:54 perfume Allergy Rash Verified 07/12/21 09:54 adhesive tape AdvReac Mild blisters Verified 07/12/21 09:54 gluten AdvReac stomach Verified 07/12/21 09:54 pain - Social History Does the pt smoke?: No Smoking Status: Never smoker Does the pt drink ETOH?: No Does the pt have substance abuse?: No PD ED PE NORMAL - Vitals Vital signs reviewed: Yes - General General: Alert and oriented X 3, No acute distress, Well developed/nourished - HEENT HEENT: Atraumatic, PERRL, EOMI, Moist mucous membranes, Other (Large postop wound on left ventral lateral tongue with brisk pulsatile bleeding.) - Cardiac Cardiac: RRR, No murmur - Respiratory Respiratory: Clear bilaterally - Abdomen Abdomen: Normal bowel sounds, Soft, Non tender, Non distended - Derm Derm: Warm and dry - Extremities Extremities: No deformity - Neuro Neuro: Alert and oriented X 3 - Psych Psych: Normal mood, Normal affect Results - Vitals Vitals: Vital Signs - 24 hr 10/28/22 10/28/22 04:36 05:43 Temperature 36.3 C L Heart Rate 129 H 131 H Respiratory 16 16 Rate Blood Pressure 131/84 H 114/71 O2 Saturation 95 95 Oxygen O2 Source Room air PD Medical Decision Making - ED course Complexity details: considered differential, d/w patient, d/w senior staff consultant (Dr. Aguayo) ED course: Given that the area of bleeding was fairly far back on the patient's tongue, I was not certain that I would be able to adequately suture. As such, I did discuss the case with Dr. Aguayo, who graciously agreed to come in on this holiday morning. I did hold pressure with a TXA impregnated gauze while waiting. Dr. Aguayo did place a [id number] suture in the tongue and the patient was observed for some time after the procedure. She was still found to be doing well and was cleared for discharge by Dr. Aguayo. The patient was advised that she should follow-up with her surgeon and Dr. Aguayo is also advised her that she may follow-up with him in his office if needed, as well. Departure - Departure Disposition: 01 Home, Self Care Clinical Impression: Hemorrhage of tongue Condition: Stable Instructions: ED Tonsillectomy Post Op Bleeding Comments: You were found to have a small artery bleeding on the side of your tongue this morning. This was repaired with [id number] suture by Dr. Aguayo. The suture that was placed is absorbable and will ultimately come out on its own. You should continue your plans to follow-up with your surgeon but should also follow-up with Dr. Aguayo as he discussed with you. If you develop more bleeding, you should return to the emergency department. I have included instructions on post tonsillectomy bleeding, as we do not have specific instructions set for bleeding from the tongue after surgery. However, some of the post tonsillectomy bleeding instructions may be helpful for potential bleeding from your tongue, as well. If the bleeding starts again, please take gauze and hold firm pressure. You may also apply ice or ice packs to the tongue. However, if you cannot get the bleeding to stop, you should return to the emergency department.
--- NOTE | 2022-10-28 05:56 | OPERATIVE REPORT ---
Operative Report - General Procedure Date: 10/28/22 Planned Procedure: Control of hemorrhage left ventrolateral tongue Pre-Op Diagnosis: Hemorrhage left ventrolateral tongue Procedure Performed: Control of hemorrhage left ventrolateral tongue with sutures Post Op Diagnosis: Hemorrhage left ventrolateral tongue - Procedure Note Primary Surgeon: Anthony Aguayo DDS Anesthesia Technique: Local Estimated Blood Loss (mL): 100 Indications: This is a 72-year-old female who 1 week ago had a squamous cell carcinoma removed from the left ventrolateral tongue. Her postoperative course was normal until last night when she began having bleeding. Clinical examination is consistent with hemorrhage from a single small artery in the anterior one third of the wound. It was decided that local measures to achieve hemostasis was indicated to prevent further blood loss. The risks, benefits, and alternatives of this plan were discussed with the patient including pain, swelling, bleeding, infection, need for further surgeries, failure to stop the bleeding, need for transfusion, scarring. Adequate time was given answer all questions and informed consent was obtained. Findings: The patient was encountered in the emergency room. She was in a reclined position in the emergency room bed. Local anesthesia was achieved with 2% lidocaine with 1 100,000 epinephrine x15 cc. A retraction suture was placed in the anterior tongue and the tongue was pulled anteriorly to allow for better visualization of the tongue wound. It was confirmed that bleeding was only present in the and in a single point in the anterior third of the wound. Bleeding was controlled by placing a 2-0 Vicryl vlapnq-aq-bkclu suture around the muscular tissue that enveloped the artery. Large bites of submucosal muscular tissue were used to contract the adjacent soft tissue onto this small bleeding artery. This procedure was very effective and the tongue was monitored for the next 15 minutes by myself and she remained hemostatic. Afterwards she continued to use gauze with TXA as a precaution. Complications: None
== END 2022-10-28 07:21 | disposition home or self-care (01) ==
LOC: EDUNIT# → ED 04:30
DX: K91.840 Postprocedural hemorrhage of a digestive system organ or structure following a digestive system procedure (principal)
CPT/HCPCS: 99283; 99284

== ENCOUNTER 2023-08-11 09:39 | Outpatient (CLI) | payer MEDICARE, OTHER ==
[2023-08-11 14:52] LABS: BASOPHILS # (AUTO) 0.1 10^3/uL (0.0-0.1); BASOPHILS % (AUTO) 0.8 %; EOSINOPHILS # (AUTO) 0.1 10^3/uL (0.0-0.7); HGB - HEMOGLOBIN 16.3 g/dL (12.0-16.0); LYMPHOCYTES # (AUTO) 2.8 10^3/uL (1.5-3.5); LYMPHOCYTES % (AUTO) 38.3 %; MEAN CORPUSCULAR HEMOGLOBIN 29.3 pg (27.0-31.0); MEAN CORPUSCULAR VOLUME 91.6 fL (81.0-99.0); MEAN PLATELET VOLUME 11.4 fL (7.9-10.8); MONOCYTES # (AUTO) 0.5 10^3/uL (0.0-1.0); MONOCYTES % (AUTO) 6.4 %; NEUTROPHILS # (AUTO) 3.8 10^3/uL (1.5-6.6); NEUTROPHILS % (AUTO) 52.5 %; PLT - PLATELET COUNT 277 10^3/uL (130-450); RED BLOOD COUNT 5.57 10^6/uL (4.20-5.40); WHITE BLOOD COUNT 7.2 x10^3/uL (4.8-10.8)
[2023-08-11 16:02] LABS: ALBUMIN 4.3 g/dL (3.2-5.5); ALBUMIN/GLOBULIN RATIO 1.5 (1.0-2.2); BILIRUBIN,TOTAL 1.3 mg/dL (0.2-1.0); CALCIUM 10.5 mg/dL (8.5-10.3); CREATININE 0.6 mg/dL (0.6-1.3); POTASSIUM 4.1 mmol/L (3.5-4.5); TOTAL PROTEIN 7.1 g/dL (6.4-8.9)
[2023-08-11 20:02] LABS: ESTIMATED AVERAGE GLUCOSE 111 mg/dL (70-100); HEMOGLOBIN A1c% 5.5 % (4.27-6.07)
== END 2023-08-11 09:40 | disposition home or self-care (01) ==
LOC: LAB.S 09:39
PROVIDERS: ATTEND Nurse Practitioner Acute Care
DX: Z13.228 Encounter for screening for other metabolic disorders (principal); E53.8 Deficiency of other specified B group vitamins; Z13.1 Encounter for screening for diabetes mellitus; Z13.0 Encounter for screening for diseases of the blood and blood-forming organs and certain disorders involving the immune mechanism
CPT/HCPCS: 36415; 80053; 83036; 85025

== ENCOUNTER 2023-08-24 14:06 | Outpatient (CLI) | payer MEDICARE, OTHER ==
--- NOTE | 2023-08-25 10:11 | Mammography Report ---
BILATERAL DIGITAL SCREENING MAMMOGRAM 3D/2D: 08/24/2023 CLINICAL: Routine screening. Comparison is made to exams dated: 07/23/2021 mammogram and 07/16/2017 mammogram - [facility]. There are scattered areas of fibroglandular density in both breasts (category b / 25%-50% glandular t issue). No significant masses, calcifications, or other findings are seen in either breast. There has been no significant interval change. IMPRESSION: NEGATIVE There is no mammographic evidence of malignancy. A 1 year screening mammogram is recommended. Based on the Tyrer Cuzick model (a risk assessment model) the patient's lifetime risk is 5.7% and her 10 year risk is 4.7%. According to the ACR, ACS, and NCCN guidelines, an annual breast MRI exam paula g with mammogram is recommended if the patient's lifetime risk is 20% or greater. This exam was interpreted at Station ID: [id number]. NOTE: For mammograms, a report in lay terms will be sent to the patient. Approximately 15% of breast malignancies will not be visualized mammographically. In the management of a palpable breast mass, a negative mammogram must not discourage biopsy of a clinically suspicious lesion. Electronically Signed By: Win schneider/[email or web address]:08/24/2023 16:20:47 letter sent: No_Letter ACR BI-RADS Category 1: Negative 3341F PARENCHYMAL PATTERN: (A) - The breast(s) demonstrate(s) scattered fibroglandular densities. BI-RADS CATEGORY: (1) - 1 RECOMMENDATION: (ANNUAL) - Recommend routine annual screening mammography. [id number] 1 year screening LATERALITY: (B)
== END 2023-08-24 14:07 | disposition home or self-care (01) ==
LOC: DI.S 14:06
PROVIDERS: ATTEND Nurse Practitioner Acute Care
DX: Z12.31 Encounter for screening mammogram for malignant neoplasm of breast (principal); R92.323 Mammographic fibroglandular density, bilateral breasts